=== PATIENT | female | born 1980 | race Caucasian/White ===

== ENCOUNTER 2016-04-13 15:05 | Emergency (ER) | payer OTHER ==
[~2016-04-13] VITALS: Ht 172.7 cm; Wt 98.5 kg
[~2016-04-13 15:05] MED LIST: GABAPENTIN300 MG PO; IBUPROFEN800 MG PO; MOBIC15 MG PO; NATALCARE RX1 TABLE1 PO; PERCOCET 5/31 TABLET PO; Tylenol Regular Stre PO; ZOFRAN ODT4 MG PO
[2016-04-13 16:13] LABS: HEMATOCRIT 40.4 % (36.0-46.0); MCH 26.9 PG (29.0-34.0); MCHC 32.9 G/DL (30.0-36.0); MCV 81.6 FL (83-99); MEAN PLAT.VOLUME 9.4 uM^3 (9.5-12.4); PLATELET COUNT 379 K/uL (156-360); RBC DIS.WIDTH-CV 13.7 % (11.8-14.6); RBC DIS.WIDTH-SD 40.3 % (39-53); RED BLOOD COUNT 4.95 M/uL (3.80-5.20); WHITE BLOOD COUNT 14.1 K/uL (4.1-10.2)
[2016-04-13 16:28] LABS: CHLORIDE 107 mEq/L (99-109); POTASSIUM 4.1 mEq/L (3.7-5.4); SODIUM 141 mEq/L (136-147)
[2016-04-13 16:30] LABS: ADD MIUA? YES; BILIRUBIN NEGATIVE; BLOOD LARGE; COLOR YELLOW ((YELLOW)); GLUCOSE (STRIP) NEGATIVE; KETONES NEGATIVE; LEUKOCYTES LARGE; NITRITE NEGATIVE; PROTEIN (STRIP) NEGATIVE; SPECIFIC GRAVITY 1.009 (1.000-1.030); UROBILINOGEN 0.2 MG/DL (0.2-1.0)
[2016-04-13 16:30] LABS: GLUCOSE 124 mg/dL (70-99)
[2016-04-13 16:31] LABS: ANION GAP 11 MEQ/L (2-14)
[2016-04-13 16:32] LABS: TOTAL BILIRUBIN 0.5 mg/dL (0.0-1.0)
[2016-04-13 16:33] LABS: ALKALINE PHOSPHATASE 75 IU/L (3-129)
[2016-04-13 16:34] LABS: GFR ESTIMATE (CALCULATED) > 59 mL/min/
[2016-04-13 16:35] LABS: UREA NITROGEN (BUN) 11 mg/dL (9-23)
[2016-04-13 16:43] LABS: QUANTITATIVE HCG < 4.0 MIU/ML
[2016-04-13 16:57] LABS: BACTERIA 1+; CASTS NONE SEEN /LPF; CRYSTALS NONE SEEN; EPITHELIAL CELLS 1+; MUCUS NONE SEEN; PATHOLOGICAL CAST NONE SEEN; SMALL ROUND CELL NONE SEEN; UCUL ADDED? NO; WHITE BLOOD CELLS 30-40 /HPF (0-5); YEAST-LIKE CELL NONE SEEN
[2016-04-13] MEDS ORDERED: FLAGYL500 MG PO (19:24)
[2016-04-13] MEDS ORDERED: CIPRO500 MG PO (19:24)
[2016-04-13 19:58] VITALS: BP 109/76
== END 2016-04-13 20:00 | disposition home or self-care (01) ==
LOC: EME 15:05
DX: R10.33 Periumbilical pain (principal); R10.32 Left lower quadrant pain; Z87.19 Personal history of other diseases of the digestive system
CPT/HCPCS: 74177; 80053; 81003; 84702; 85027; 87086; 99281; 99284

== ENCOUNTER 2017-11-02 13:03 | Outpatient (CLI) | payer OTHER ==
[~2017-11-02 13:03] MED LIST changes: +CIPRO500 MG PO; +FLAGYL500 MG PO
[2017-11-02 13:16] VITALS: BP 124/70
[2017-11-02] MEDS ORDERED: PRENATAL TABLE1 EAC3 PO (14:14)
== END 2017-11-02 14:20 | disposition home or self-care (01) ==
LOC: LDRP-OP 13:03 → 2WEST 13:04 → LDRP-OP 02-17 08:51
DX: O36.8130 Decreased fetal movements, third trimester, not applicable or unspecified (principal); O99.413 Diseases of the circulatory system complicating pregnancy, third trimester; Z86.79 Personal history of other diseases of the circulatory system; Z98.890 Other specified postprocedural states; O09.523 Supervision of elderly multigravida, third trimester; Z3A.29 29 weeks gestation of pregnancy
CPT/HCPCS: 59025; G0378